=== PATIENT | male | born 2005 | race Caucasian/White ===

== ENCOUNTER 2025-01-03 20:31 | Emergency (ER) | payer OTHER, SELFPAY ==
[2025-01-03 20:39] VITALS: BP 135/68
[2025-01-03 21:01] VITALS: BP 146/70
[2025-01-03 21:02] VITALS: BMI 27.0
--- NOTE | 2025-01-03 21:44 | ED.MUSCINJ ---
HPI-Injury
General
Chief Complaint: Musculo-Skeletal Complaint
Source: patient and family
Exam Limitations: none
Time Seen by Provider: 01/03/25 20:55
History of Present Illness-Injury
Initial Injury comments:
Patient is a 19-year-old male with past medical history of left shoulder surgery 7 years ago for a calcium deposit in the shoulder who presents to the emergency department from home accompanied by his father for evaluation of left shoulder pain.
Patient reports that he was told that he has a calcium deposit in his triceps tendon when he had a surgery 7 years ago. However they stated that it was not large enough to be removed. Patient was told that eventually it would grow and would likely
need surgical intervention. Patient reports that over the past several months, he has noticed increasing pain at the site. He reports that he can feel the calcium deposit under his skin. He reports that he went to workout today and moved his arms
out to the sides and he developed severe pain at the site. Patient reports that he has difficulty moving his arm behind him. He reports he is able to move it straight up and out to the side. Patient denies any numbness, weakness, tingling of the
hand or fingers. Patient denies any pain to the remainder of the extremity. Patient reports taking 600 mg of ibuprofen with some improvement in his pain.
Past History
Past History
ED Past Medical History: None
ED Past Surgical History: Orthopedic (left shoulder surgery)
Social History
Tobacco: Non-smoker
Alcohol: Occasional
Drug: None
Review of Systems
Review of Systems
All Other Systems: Not applicable
Constitutional: Reports no symptoms
EENT: Reports no symptoms
Respiratory: Reports no symptoms
Cardiac: Reports no symptoms
ABD/GI: Reports no symptoms
: Reports no symptoms
Musculoskeletal: Reports other (left shoulder pain)
Skin: Reports no symptoms
Neurological: Reports no symptoms
Endocrine: Reports no symptoms
Hematologic/Lymphatic: Reports no symptoms
Psychiatric: Reports no symptoms
Phy Exam
General Physical Exam
General Presentation: well appearing and no apparent distress
General Skin: warm and dry
General Habitus: normal
General Mental: alert
General Hydration: appears well hydrated
ENT Exam
ENT Exam: EOMI and normocephalic
Cardiovascular Exam
Cardiovascular Exam: no edema
Pulmonary Exam
Pulmonary Exam: no respiratory distress
Neurological Exam
Neurological Exam: alert, oriented x3, no motor deficits and speech normal
Musculoskeletal Exam
Musculoskeletal Exam: other (no deformity, swelling, erythema, ecchymosis to the LUE, palpable calcium deposit at the left axilla without significant ttp, pt is able to flex, abduct and adduct the shoulder, but has difficulty with extension, no ttp
to the remainder of the LUE, 2+ radial pulse, sensation is intact to light touch)
Skin Exam
Skin Exam: normal color, warm/dry, no rash and no petechia
Psychiatric Exam
Psychiatric Exam: normal mood/affect
Injury Course
Orders/Labs/Results
Orders:
Orders
01/03/25 20:33
EKG [Electrocardiogram (*1)] Urgent
Reason for Study: Chest Pain
*Pulse Oximetry
SaO2: 98
Oxygen Mode of Delivery: Room air
Patient hypoxic: no
*Critical Care Note
Total Time (30-74mins, 75-104mins- exclusive of procedures): Not Applicable
Update Note
Update Note:
19-year-old male presents to the emergency department for evaluation of pain to his left shoulder. Patient has a remote history of surgery to the shoulder for a calcium deposit. He was told he has an additional calcium deposit that they were not
ready to perform surgery on. Patient reports he has had increased pain to the area for the past several months but it became acutely worse while exercising today. On arrival, patient's vital signs are stable, he is afebrile. On exam, patient is
well-appearing, he is in no acute distress, he is neurovascularly intact. I discussed performing radiographs with the patient. Patient and his father do not want to perform radiographs at this time as they feel that the orthopedic surgeon will
likely repeat them in his or her office. In addition, I have low suspicion for acute fracture or dislocation. Instead will recommend supportive care measures and father will contact the patient's orthopedic surgeon first thing in the morning for
definitive diagnosis and treatment. Patient safe for discharge with return precautions, he and his father expressed understanding of the plan and agreed.
ED Attending Note
-
Portions of this chart may have been created with voice recognition software.� Occasional wrong word or��sound alike� substitutions may have occurred due to the inherent limitations of voice recognition software.
Discharge Plan
Departure
Patient Disposition: Home (Routine Discharge)
Date of Disposition: 01/03/25
Time of Disposition: 21:41
Patient with high blood pressure during this ER visit?: Yes
Condition: Good
Covid-19: Not Applicable
Discharge Problem:
Acute pain of left shoulder
Instructions: Shoulder pain - ED discharge instructions
Prescriptions:
No Action
No Current Medications
0
Referrals:
Soy Stinson MD [Family Provider, Pediatrics]
Dwain Alvarez MD [Active, Orthopedics] - Follow up in 2-3 days
Activity Restrictions/Additional Instructions:
You were seen emergency department for evaluation of left shoulder pain after exercising. We discussed performing an x-ray in the emergency department but determined that it was unlikely to be helpful and that you will follow-up with orthopedics
regardless. You may continue to use ice to the area for 20 minutes at a time 4-5 times a day. You may continue to take ibuprofen 600 mg every 6 hours for pain and inflammation. You may take Tylenol 650 mg every 4-6 hours as needed for additional
pain relief, not to exceed 3000 mg in a 24-hour period. We do recommend that you follow closely with orthopedics for definitive diagnosis and treatment. Please return to the emergency department if you develop severe pain, swelling, redness, color
change of the hand or fingers, or for any other worsening or concerning symptoms.
Interventions
Interventions:
*Risk Screen - Suicide Last Done: 01/03/25 20:39
*General Assessment Last Done: 01/03/25 20:39
*Neglect/Abuse Screening Last Done: 01/03/25 20:39
*ED- Fall Risk Assessment Last Done: 01/03/25 21:02
*ED COVID-19 Vaccine History Last Done: 01/03/25 21:02
*Nursing Disposition Last Done: 01/03/25 21:53
ED-Musculoskeletal Assessment Last Done: 01/03/25 21:02
Discharge Date and Time
Discharge Date/Time: 01/03/25 21:54
Print Language: [id number]
== END 2025-01-03 21:54 | disposition home or self-care (01) ==
LOC: EMR 20:31
PROVIDERS: EMERGENCY PHYSICIAN Student in an Organized Health Care Education/Training Program; FAMILY PHYSICIAN Pediatrics
DX: M25.512 Pain in left shoulder (principal); Z98.890 Other specified postprocedural states
CPT/HCPCS: 99282